=== PATIENT | male | born 1985 | race Hispanic/Latino ===

== ENCOUNTER 2017-08-05 13:50 | Inpatient (IN) | payer OTHER, SELFPAY ==
[~2017-08-05] VITALS: Ht 172.7 cm; Wt 110.7 kg
[2017-08-05] MEDS ORDERED: KETOROLAC TROMETHAMINE 30MG/ML ONE (14:07)
[2017-08-05] MEDS ORDERED: SODIUM CHLORIDE 0.9% 1000ML 1,000 ML IV ONE ×2 (14:07→17:17)
[2017-08-05] MEDS ORDERED: ONDANSETRON HCL 4 MG/2 ML VIAL ONE (14:26)
[2017-08-05] MEDS ORDERED: ACETAMINOPHEN 325 MG TAB ONE (14:26)
[2017-08-05 14:39] LABS: BASOPHILS % (AUTO) 0.4 % (0.0-5.0); EOSINOPHILS % (AUTO) 0.4 % (0.0-8.0); LYMPHOCYTES % (AUTO) 12.2 % (21.0-51.0); MEAN CORPUSCULAR HEMOGLOBIN 30.4 pg (27.0-33.0); MEAN CORPUSCULAR HGB CONC 34.2 g/dL (32.0-36.0); MEAN CORPUSCULAR VOLUME 88.7 fL (79-99); MONOCYTES % (AUTO) 9.1 % (3.0-13.0); NEUTROPHILS % (AUTO) 77.9 % (40.0-77.0); PLATELET COUNT (AUTO) 337 K/uL (130-400); RED BLOOD CELL COUNT(AUTO) 4.28 MIL/uL (4.50-6.20); RED CELL DISTRIBUTION WIDTH 12.2 % (11.0-15.5); WHITE BLOOD COUNT (AUTO) 20.5 K/uL (4.8-10.8)
[2017-08-05] MEDS ORDERED: CEFTRIAXONE SODIUM 2 GM VIAL ONE (14:44)
[2017-08-05] MEDS ORDERED: SODIUM CHLORIDE 0.9% 50 ML IV ONE (14:45)
[2017-08-05] MEDS ORDERED: SODIUM CHLORIDE 0.9% 1000ML 2,000 ML IV ONE (14:45)
[2017-08-05 14:46] LABS: APPEARANCE,URINE Clear (CLEAR); BILIRUBIN,URINE Small (NEGATIVE); COLOR,URINE Dark Yellow (YELLOW); GLUCOSE, URINE (UA) Negative (NEGATIVE); KETONES,URINE 15 mg/dL (NEGATIVE); LEUKOCYTE ESTERASE ,URINE Trace (NEGATIVE); NITRATE,URINE Negative (NEGATIVE); OCCULT BLOOD,URINE Small (NEGATIVE); PROTEIN,URINE POS 2+ (NEGATIVE)
[2017-08-05 14:58] LABS: BACTERIA,URINE Few /HPF (None Seen); RBC,URINE None Seen /HPF (0-1)
[2017-08-05 15:55] LABS: CREATININE 0.9 mg/dL (0.5-1.5); POTASSIUM 3.5 mmol/L (3.5-5.1)
[2017-08-05 15:59] LABS: ALBUMIN 2.6 g/dL (3.5-5.0); BILIRUBIN,DIRECT 0.3 mg/dL (0.0-0.3); BILIRUBIN,TOTAL 0.8 mg/dL (0.2-1.0); TOTAL PROTEIN, SERUM 7.8 g/dL (6.0-8.3)
[2017-08-05] MEDS ORDERED: METRONIDAZOLE 500MG/100ML BAG 100 ML ONE (16:09)
[2017-08-05] MEDS ORDERED: MORPHINE SULFATE 4 MG/1ML SYG ONE (17:11)
[2017-08-05 18:18] VITALS: BP 120/75
[2017-08-05] MEDS ORDERED: MORPHINE SULFATE 4 MG/1ML SYG IVP PRN (18:45)
[2017-08-05] MEDS ORDERED: ONDANSETRON HCL 4 MG/2 ML VIAL IVP PRN (18:45)
[2017-08-05] MEDS ORDERED: ACETAMINOPHEN 325 MG TAB PO PRN (18:45)
[2017-08-05 19:00] VITALS: BP 135/67
[2017-08-05] MEDS: LACTATED RINGERS 1000ML 1,000 ML IV SCH (20:28)
[2017-08-05] MEDS: CEFOXITIN SODIUM 1 GM VIAL IVP SCH ×2 (20:28→23:36)
[2017-08-05] MEDS: WATER FOR INJECTION,STERILE 5 ML VIAL INJ SCH ×2 (20:28→23:36)
[2017-08-05] MEDS: MORPHINE SULFATE 2 MG/ML 1ML SYG IVP PRN ×2 (20:39→23:37)
[2017-08-05 23:00] VITALS: BP 127/64
[2017-08-05] MEDS: METRONIDAZOLE 500MG/100ML BAG 100 ML IVPB SCH (23:35)
[2017-08-06] VITALS (25 sets, daily range): BP systolic 94–137; BP diastolic 42–78
[2017-08-06] MEDS: CEFOXITIN SODIUM 1 GM VIAL IVP SCH ×4 (05:40→23:21)
[2017-08-06] MEDS: WATER FOR INJECTION,STERILE 5 ML VIAL INJ SCH ×4 (05:40→23:21)
[2017-08-06] MEDS: METRONIDAZOLE 500MG/100ML BAG 100 ML IVPB SCH ×3 (05:40→20:23)
[2017-08-06] MEDS: LACTATED RINGERS 1000ML 1,000 ML IV SCH ×5 (05:41→22:01)
[2017-08-06 07:25] LABS: HEMATOCRIT 32.2 % (42-54); MEAN CORPUSCULAR HEMOGLOBIN 30.6 pg (27.0-33.0); MEAN CORPUSCULAR HGB CONC 34.5 g/dL (32.0-36.0); MEAN CORPUSCULAR VOLUME 88.7 fL (79-99); PLATELET COUNT (AUTO) 302 K/uL (130-400); RED BLOOD CELL COUNT(AUTO) 3.63 MIL/uL (4.50-6.20); RED CELL DISTRIBUTION WIDTH 12.3 % (11.0-15.5); WHITE BLOOD COUNT (AUTO) 20.8 K/uL (4.8-10.8)
[2017-08-06 07:40] LABS: CREATININE 0.8 mg/dL (0.5-1.5); POTASSIUM 3.9 mmol/L (3.5-5.1)
[2017-08-06] MEDS ORDERED: MIDAZOLAM HCL 1 MG/ML 2ML VIAL ONE (10:56)
[2017-08-06] MEDS ORDERED: FENTANYL CITRATE PF 50 MCG/1 ML 5ML AMP IV ONE (10:56)
[2017-08-06] MEDS ORDERED: CALDOLOR 800MG+NS 250ML 250 ML IV ONE (11:35)
[2017-08-06] MEDS: MORPHINE SULFATE 2 MG/ML 1ML SYG IVP PRN (23:22)
[2017-08-07 03:00] VITALS: BP 119/75
[2017-08-07] MEDS: METRONIDAZOLE 500MG/100ML BAG 100 ML IVPB SCH ×3 (05:33→21:03)
[2017-08-07] MEDS: CEFOXITIN SODIUM 1 GM VIAL IVP SCH ×3 (05:33→17:58)
[2017-08-07] MEDS: WATER FOR INJECTION,STERILE 5 ML VIAL INJ SCH ×3 (05:33→17:58)
[2017-08-07 08:00] VITALS: BP 130/76
[2017-08-07 12:00] VITALS: BP 126/69
[2017-08-07 16:00] VITALS: BP 122/75
[2017-08-07 19:30] VITALS: BP 118/75
[2017-08-07] MEDS: LACTATED RINGERS 1000ML 1,000 ML IV SCH (21:03)
[2017-08-07 23:28] VITALS: BP 104/57
[2017-08-08] MEDS: CEFOXITIN SODIUM 1 GM VIAL IVP SCH ×4 (00:18→18:54)
[2017-08-08] MEDS: WATER FOR INJECTION,STERILE 5 ML VIAL INJ SCH ×4 (00:19→18:54)
[2017-08-08 03:57] VITALS: BP 119/70
[2017-08-08 04:13] LABS: BASOPHILS % (AUTO) 0.2 % (0.0-5.0); EOSINOPHILS % (AUTO) 0.1 % (0.0-8.0); HEMATOCRIT 31.2 % (42-54); MEAN CORPUSCULAR HEMOGLOBIN 29.9 pg (27.0-33.0); MEAN CORPUSCULAR HGB CONC 33.5 g/dL (32.0-36.0); MEAN CORPUSCULAR VOLUME 89.2 fL (79-99); MONOCYTES % (AUTO) 5.1 % (3.0-13.0); NEUTROPHILS % (AUTO) 76.6 % (40.0-77.0); PLATELET COUNT (AUTO) 375 K/uL (130-400); RED BLOOD CELL COUNT(AUTO) 3.49 MIL/uL (4.50-6.20); RED CELL DISTRIBUTION WIDTH 12.4 % (11.0-15.5); WHITE BLOOD COUNT (AUTO) 14.2 K/uL (4.8-10.8)
[2017-08-08 04:31] LABS: CREATININE 0.7 mg/dL (0.5-1.5); POTASSIUM 3.5 mmol/L (3.5-5.1)
[2017-08-08] MEDS: METRONIDAZOLE 500MG/100ML BAG 100 ML IVPB SCH ×3 (06:02→21:25)
[2017-08-08 08:00] VITALS: BP 107/66
[2017-08-08] MEDS ORDERED: ACETAMINOPHEN-CODEINE 300/30MG TAB PO PRN (09:45)
[2017-08-08] MEDS: LACTATED RINGERS 1000ML 1,000 ML IV SCH (10:01)
[2017-08-08] MEDS: ACETAMINOPHEN-CODEINE 300/30MG TAB PO PRN ×2 (10:02→21:26)
[2017-08-08 11:48] VITALS: BP 131/79
[2017-08-08 16:00] VITALS: BP 120/66
[2017-08-08 20:00] VITALS: BP 132/72
[2017-08-09] VITALS: BP 106/64
[2017-08-09] MEDS: WATER FOR INJECTION,STERILE 5 ML VIAL INJ SCH ×4 (00:09→17:21)
[2017-08-09] MEDS: CEFOXITIN SODIUM 1 GM VIAL IVP SCH ×4 (00:09→17:21)
[2017-08-09 04:00] VITALS: BP 113/66
[2017-08-09] MEDS: METRONIDAZOLE 500MG/100ML BAG 100 ML IVPB SCH ×3 (06:30→22:39)
[2017-08-09] MEDS: LACTATED RINGERS 1000ML 1,000 ML IV SCH ×2 (06:30→18:24)
[2017-08-09] MEDS: ACETAMINOPHEN-CODEINE 300/30MG TAB PO PRN ×3 (06:31→22:39)
[2017-08-09 07:30] VITALS: BP 106/64
[2017-08-09 11:00] VITALS: BP 116/71
[2017-08-09 16:00] VITALS: BP 133/84
[2017-08-09 19:30] VITALS: BP 124/75
[2017-08-10 00:18] VITALS: BP 116/69
[2017-08-10] MEDS: CEFOXITIN SODIUM 1 GM VIAL IVP SCH ×2 (00:21→05:44)
[2017-08-10] MEDS: WATER FOR INJECTION,STERILE 5 ML VIAL INJ SCH ×2 (00:22→05:44)
[2017-08-10 04:15] VITALS: BP 108/67
[2017-08-10] MEDS: METRONIDAZOLE 500MG/100ML BAG 100 ML IVPB SCH (05:45)
[2017-08-10 07:00] VITALS: BP 122/71
[2017-08-10] MEDS ORDERED: AMOX-426 PO (07:52)
== END 2017-08-10 10:20 | disposition home or self-care (01) | DRG 340 ==
LOC: EDH 13:50 → EDHIP 13:51 → 3BH 17:05
PROVIDERS: ADMIT Surgery; ATTEND Surgery
PROC: 0DTJ0ZZ Resection of Appendix, Open Approach (ICD-10-PCS; principal; 2017-08-06 11:05)
DX: K35.2 Acute appendicitis with generalized peritonitis (principal); E66.9 Obesity, unspecified; F17.200 Nicotine dependence, unspecified, uncomplicated; Z68.37 Body mass index [BMI] 37.0-37.9, adult
CPT/HCPCS: 36415; 71046; 74176; 80048; 80053; 81001; 82248; 83605; 85025; 85027; 87040; 87070; 87076; 87088; 87205; 87804; 87880; 88300; J0694; J0696; J1741; J1885; J2250; J2270; J2405; J3010; J3490; J7030; J7120

== ENCOUNTER 2017-08-24 21:35 | Inpatient (IN) | payer OTHER, SELFPAY ==
[~2017-08-24] VITALS: Ht 172.7 cm; Wt 106.3 kg
[~2017-08-24 21:35] MED LIST: AMOX-426 PO
[2017-08-24 22:33] LABS: BASOPHILS % (AUTO) 0.5 % (0.0-5.0); EOSINOPHILS % (AUTO) 0.4 % (0.0-8.0); HEMATOCRIT 35.2 % (42-54); LYMPHOCYTES % (AUTO) 29.4 % (21.0-51.0); MEAN CORPUSCULAR HEMOGLOBIN 30.8 pg (27.0-33.0); MEAN CORPUSCULAR HGB CONC 34.9 g/dL (32.0-36.0); MEAN CORPUSCULAR VOLUME 88.4 fL (79-99); MONOCYTES % (AUTO) 9.4 % (3.0-13.0); NEUTROPHILS % (AUTO) 60.3 % (40.0-77.0); PLATELET COUNT (AUTO) 177 K/uL (130-400); RED BLOOD CELL COUNT(AUTO) 3.98 MIL/uL (4.50-6.20); RED CELL DISTRIBUTION WIDTH 12.6 % (11.0-15.5); WHITE BLOOD COUNT (AUTO) 11.8 K/uL (4.8-10.8)
[2017-08-24 22:40] LABS: CARBON DIOXIDE 28 mmol/L (21-32); CHLORIDE 98 mmol/L (101-111); GLOMERULAR FILTR. RATE CALC 92 mL/min (>60); GLUCOSE,RANDOM 108 mg/dL (70-105); POTASSIUM 3.4 mmol/L (3.5-5.1); SODIUM SERUM 137 mmol/L (136-145); UREA NITROGEN, BLOOD 9 mg/dL (7-18)
[2017-08-24] MEDS ORDERED: IOPAMIDOL-370 75 ML VIAL IV ONE (22:40)
[2017-08-24 22:42] LABS: APPEARANCE,URINE Clear (CLEAR); BILIRUBIN,URINE Negative (NEGATIVE); COLOR,URINE Yellow (YELLOW); GLUCOSE, URINE (UA) Negative (NEGATIVE); INR 0.96 (0.85-1.15); KETONES,URINE Negative (NEGATIVE); LEUKOCYTE ESTERASE ,URINE Negative (NEGATIVE); NITRATE,URINE Negative (NEGATIVE); OCCULT BLOOD,URINE Moderate (NEGATIVE); PARTIAL THROMBOPLASTIN TIME 30.5 SEC (26.3-35.5); PH,URINE 6.5 (5.0-8.0); PROTEIN,URINE Negative (NEGATIVE); PROTHROMBIN TIME 10.1 SEC (9.6-11.6)
[2017-08-24] MEDS ORDERED: VANCOMYCIN 1GM+NS 250ML 250 ML IV ONE (22:54)
[2017-08-24 22:55] LABS: ALANINE AMINOTRANSFERASE 70 U/L (12-78); ALBUMIN 3.3 g/dL (3.5-5.0); ASPARTATE AMINOTRANSFERASE 39 U/L (10-37); BILIRUBIN,TOTAL 0.5 mg/dL (0.2-1.0); CREATINE KINASE MB < 0.5 ng/mL (0.5-3.6); CREATINE KINASE, TOTAL 46 U/L (21-232); MYOGLOBIN 19 ng/mL (10-92); TOTAL PROTEIN, SERUM 8.3 g/dL (6.0-8.3); TROPONIN I < 0.04 ng/mL (0.00-0.06)
[2017-08-24 23:04] LABS: BACTERIA,URINE None Seen /HPF (None Seen); RBC,URINE 0-1 /HPF (0-1); SQUAMOUS EPITHELIAL CELL,UR Rare /LPF (0-2); WBC,URINE None Seen /HPF (0-1)
[2017-08-25] MEDS ORDERED: MEROPENEM 1 GM VIAL ONE (00:53)
[2017-08-25] MEDS ORDERED: ACETAMINOPHEN 325 MG TAB ONE (02:18)
[2017-08-25 03:14] VITALS: BP 130/75
[2017-08-25] MEDS ORDERED: MORPHINE SULFATE 2 MG/ML 1ML SYG ONE (03:52)
[2017-08-25] MEDS ORDERED: POTASSIUM CHLORIDE 20MEQ/100ML 100 ML IV PRN (04:30)
[2017-08-25] MEDS ORDERED: POTASSIUM CHLORIDE 10% ELIXIR 20 MEQ/15 ML UDCUP PO PRN (04:30)
[2017-08-25] MEDS ORDERED: LIDOCAINE HCL-MPF 1% 2ML VIAL IJ PRN (04:30)
[2017-08-25] MEDS ORDERED: ACETAMINOPHEN 325 MG TAB PO PRN ×2 (04:30)
[2017-08-25] MEDS ORDERED: VANCOMYCIN PROTOCOL PER PHARMACY IV SCH (04:30)
[2017-08-25] MEDS ORDERED: COMPOUND IV REFRIGERATED 1 EACH IVSOLN MISC PRN (04:30)
[2017-08-25] MEDS: SODIUM CHLORIDE 0.9% 1000ML 1,000 ML IV SCH ×2 (04:30→14:37)
[2017-08-25 05:11] LABS: HEMATOCRIT 32.5 % (42-54); MEAN CORPUSCULAR HEMOGLOBIN 30.5 pg (27.0-33.0); MEAN CORPUSCULAR HGB CONC 34.3 g/dL (32.0-36.0); MEAN CORPUSCULAR VOLUME 88.9 fL (79-99); PLATELET COUNT (AUTO) 163 K/uL (130-400); RED BLOOD CELL COUNT(AUTO) 3.65 MIL/uL (4.50-6.20); RED CELL DISTRIBUTION WIDTH 12.7 % (11.0-15.5); WHITE BLOOD COUNT (AUTO) 10.2 K/uL (4.8-10.8)
[2017-08-25 05:13] LABS: CREATININE 0.8 mg/dL (0.5-1.5); POTASSIUM 3.5 mmol/L (3.5-5.1)
[2017-08-25 05:14] LABS: INR 0.98 (0.85-1.15); PARTIAL THROMBOPLASTIN TIME 31.7 SEC (26.3-35.5); PROTHROMBIN TIME 10.3 SEC (9.6-11.6)
[2017-08-25 05:33] LABS: BAND NEUTROPHILS % (MANUAL) 7 % (0-2); LYMPHOCYTES % (MANUAL) 25 % (22-44); MAN.DIFF COMMENT-IMPRESSION MANUAL DIFFERENTIAL; MONOCYTES % (MANUAL) 4 % (2-9); PLATELET MORPHOLOGY COMMENT ADEQUATE; REACTIVE LYMPHOCYTES 3 % (0-0); SEGMENTED NEUTROPHILS % 61 % (40-70)
[2017-08-25 08:00] VITALS: BP 121/76
[2017-08-25] MEDS ORDERED: VANCOMYCIN 1.5 GM in SODIUM CHLORIDE 0.9% 250 ML IV SCH (10:00)
[2017-08-25] MEDS: POTASSIUM CHLORIDE 20 MEQ ERTAB PO PRN ×2 (10:10→14:38)
[2017-08-25] MEDS: MEROPENEM 1 GM VIAL IVP SCH ×2 (10:10→17:00)
[2017-08-25] MEDS: FAMOTIDINE/PF 20 MG/2 ML VIAL IV SCH ×2 (10:10→20:57)
[2017-08-25] MEDS: MORPHINE SULFATE 2 MG/ML 1ML SYG IVP PRN ×3 (10:46→20:58)
[2017-08-25 11:57] VITALS: BP 123/66
[2017-08-25] MEDS: ONDANSETRON HCL 4 MG/2 ML VIAL IVP PRN (14:37)
[2017-08-25 16:00] VITALS: BP 113/70
[2017-08-25] MEDS: LEVOFLOXACIN 500 MG/D5W 100 ML 100 ML IV SCH (17:55)
[2017-08-25 20:00] VITALS: BP 118/67
[2017-08-25] MEDS ORDERED: METRONIDAZOLE 500MG/100ML BAG 100 ML ONE (20:31)
[2017-08-25] MEDS: METRONIDAZOLE 500MG/100ML BAG 100 ML IV SCH (21:06)
[2017-08-26] VITALS: BP 112/59
[2017-08-26] MEDS: MEROPENEM 1 GM VIAL IVP SCH (01:41)
[2017-08-26] MEDS: SODIUM CHLORIDE 0.9% 1000ML 1,000 ML IV SCH ×2 (01:50→10:51)
[2017-08-26 04:00] VITALS: BP 117/70
[2017-08-26 06:00] LABS: MEAN CORPUSCULAR HEMOGLOBIN 30.6 pg (27.0-33.0); MEAN CORPUSCULAR HGB CONC 34.3 g/dL (32.0-36.0); MEAN CORPUSCULAR VOLUME 89.3 fL (79-99); PLATELET COUNT (AUTO) 186 K/uL (130-400); RED CELL DISTRIBUTION WIDTH 12.5 % (11.0-15.5); WHITE BLOOD COUNT (AUTO) 10.6 K/uL (4.8-10.8)
[2017-08-26] MEDS: ONDANSETRON HCL 4 MG/2 ML VIAL IVP PRN ×2 (06:09→10:50)
[2017-08-26] MEDS: METRONIDAZOLE 500MG/100ML BAG 100 ML IV SCH ×3 (06:10→23:23)
[2017-08-26] MEDS: MORPHINE SULFATE 2 MG/ML 1ML SYG IVP PRN ×2 (06:10→10:51)
[2017-08-26 06:20] LABS: CREATININE 0.9 mg/dL (0.5-1.5); POTASSIUM 3.3 mmol/L (3.5-5.1)
[2017-08-26 07:50] VITALS: BP 115/75
[2017-08-26] MEDS ORDERED: DIATR MEGLU/DIATRIZOATE SODIUM 30 ML BOTTLE PO ONE (09:10)
[2017-08-26] MEDS: FAMOTIDINE/PF 20 MG/2 ML VIAL IV SCH ×2 (10:52→23:24)
[2017-08-26 11:10] VITALS: BP 130/82
[2017-08-26] MEDS: POTASSIUM CHLORIDE 20 MEQ ERTAB PO PRN ×3 (14:25→23:26)
[2017-08-26 16:50] VITALS: BP 116/73
[2017-08-26] MEDS: LEVOFLOXACIN 500 MG/D5W 100 ML 100 ML IV SCH (17:05)
[2017-08-26 20:00] VITALS: BP 126/68
[2017-08-27] VITALS: BP 127/75
[2017-08-27 04:00] VITALS: BP 98/53
[2017-08-27 05:31] LABS: HEMATOCRIT 32.3 % (42-54); MEAN CORPUSCULAR HEMOGLOBIN 30.9 pg (27.0-33.0); MEAN CORPUSCULAR HGB CONC 34.8 g/dL (32.0-36.0); MEAN CORPUSCULAR VOLUME 88.7 fL (79-99); NUCLEATED RED BLOOD CELLS 0.1 % (0.0-0.19); PLATELET COUNT (AUTO) 194 K/uL (130-400); RED BLOOD CELL COUNT(AUTO) 3.65 MIL/uL (4.50-6.20); RED CELL DISTRIBUTION WIDTH 12.5 % (11.0-15.5); WHITE BLOOD COUNT (AUTO) 4.5 K/uL (4.8-10.8)
[2017-08-27] MEDS: METRONIDAZOLE 500MG/100ML BAG 100 ML IV SCH ×2 (05:39→13:47)
[2017-08-27] MEDS: SODIUM CHLORIDE 0.9% 1000ML 1,000 ML IV SCH (05:40)
[2017-08-27 05:43] LABS: CREATININE 0.9 mg/dL (0.5-1.5)
[2017-08-27 08:03] VITALS: BP 106/65
[2017-08-27] MEDS: FAMOTIDINE/PF 20 MG/2 ML VIAL IV SCH (09:23)
[2017-08-27 11:24] VITALS: BP 111/70
[2017-08-27] MEDS ORDERED: NYSTATIN 100000 UNIT/ML 5ML UDCUP PO SCH (13:00)
[2017-08-27 15:45] VITALS: BP 119/74
== END 2017-08-27 16:30 | disposition home or self-care (01) | DRG 872 ==
LOC: EDH 21:35 → EDHIP 21:36 → 4BH 08-25 02:27
PROVIDERS: ADMIT Internal Medicine; ATTEND Internal Medicine
DX: A41.9 Sepsis, unspecified organism (principal); B96.20 Unspecified Escherichia coli [E. coli] as the cause of diseases classified elsewhere; B96.5 Pseudomonas (aeruginosa) (mallei) (pseudomallei) as the cause of diseases classified elsewhere; E86.0 Dehydration; E87.6 Hypokalemia; F17.200 Nicotine dependence, unspecified, uncomplicated; F41.9 Anxiety disorder, unspecified; Z90.49 Acquired absence of other specified parts of digestive tract
CPT/HCPCS: 36415; 71045; 72192; 74177; 80048; 80053; 81001; 82550; 82553; 83605; 83874; 84484; 85025; 85027; 85610; 85730; 87040; 87088; 93005; 96361; 96374; J1956; J2185; J2405; J3370; J3480; J3490; J7030; Q9963; Q9967